=== PATIENT | female | born 1955 | race Caucasian/White ===

== ENCOUNTER 2017-08-13 06:07 | Inpatient (IN) | payer OTHER ==
[2017-07-29 12:43] LABS: ABSOLUTE BASOPHILS 0.1 thou/uL (0.0-0.2); ABSOLUTE EOSINOPHILS 0.1 thou/uL (0.0-0.7); ABSOLUTE LYMPHOCYTES 1.4 thou/uL (0.8-5.3); ABSOLUTE MONOCYTES 0.7 thou/uL (0.0-1.2); ABSOLUTE NEUTROPHILS 5.6 thou/uL (1.6-8.1); BASOPHILS 0.9 %; EOSINOPHILS 1.6 %; HEMATOCRIT 41.3 % (37.0-47.0); HEMOGLOBIN 13.8 gm/dL (12.0-15.0); LYMPHOCYTES 17.7 %; MCH 29.8 pg (26.0-34.0); MCHC 33.3 g/dL (28.0-37.0); MCV 89.5 fL (80.0-100.0); MONOCYTES 8.8 %; MPV 7.2 fl. (7.2-11.1); NUCLEATED RBCS 0 /100WBC; PLATELET COUNT* 383 thou/uL (150-400); RBC 4.62 mil/uL (4.20-5.00); RDW-CV 14.1 % (10.5-14.5); WBC 7.9 thou/uL (4.0-11.0)
[2017-07-29 12:52] LABS: INR 1.1; PROTIME 10.6 Seconds (9.20-11.50)
[2017-07-29 13:09] LABS: CALCIUM 8.8 mg/dL (8.5-10.1); CREATININE 0.9 mg/dL (0.6-1.3); POTASSIUM 4.3 mmol/L (3.5-5.1); TOTAL BILIRUBIN 0.4 mg/dL (<0.1-1.0); TOTAL PROTEIN 6.6 g/dL (6.4-8.2)
[2017-07-29 13:45] LABS: ESR (SEDRATE) 15 mm/hr (0-30)
--- NOTE | 2017-07-29 16:38 | EKG ---
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 07/29/17 1638 1253 [id number] Ricardo Santillan MD, FACC /EPI
[2017-07-30 03:09] LABS: GLYCOHEMOGLOBIN (HGB A1C) 5.3 % (4.8-5.6)
[~2017-08-13] VITALS: Ht 162.6 cm; Wt 110.2 kg
[~2017-08-13 06:07] MED LIST: ULTRAM 50MG TAB50 MG PO
[2017-08-13 06:42] VITALS: BP 149/78
--- NOTE | 2017-08-13 11:31 | NUR ---
ORDER RECEIVED FOR "OT EVALUATION AND TREATMENT". PLAN TO DEFER TO PHYSICAL THERAPY AT THIS TIME.
[2017-08-13 12:12] VITALS: BP 148/70
[2017-08-13 15:12] VITALS: BP 148/70
[2017-08-13 16:11] VITALS: BP 147/72
--- NOTE | 2017-08-13 17:40 | NUR ---
PATIENT ARRIVED ON UNIT FROM PACU AT 1130. COMPLETED ASSESSMENT. PATIENT ALERT AND ORIENTED X'S 4. VITAL SIGNS AND SPO2 STABLE. IV CLEAN, FLUIDS INFUSING. PAIN WELL CONTROLLED WITH PAIN MEDS. ICE PACKS, TEDS, SCD'S IN PLACE. NOBLES IN PLACE. HUNG FIRST ANTIBIOTIC, PATIENT TOLERATED. PATIENT HAD A BOUT OF NAUSEA WHEN SHE TRIED DINNER. GAVE ZOFRAN, NAUSEA SUBSIDED. MEPILEX DRESSING CLEAN, DRY, INTACT. COMPLETED HOURLY ROUNDING. CALL LIGHT WITHIN REACH. WILL CONTINUE TO MONITOR.
[2017-08-13 20:00] VITALS: BP 131/64
[2017-08-14 00:17] VITALS: BP 136/66
[2017-08-14 04:00] VITALS: BP 145/63
[2017-08-14 04:05] LABS: HEMATOCRIT 34.7 % (37.0-47.0); HEMOGLOBIN 11.5 gm/dL (12.0-15.0)
[2017-08-14 04:33] LABS: ALBUMIN 2.9 g/dL (3.4-5.0); CREATININE 0.7 mg/dL (0.6-1.3); POTASSIUM 3.5 mmol/L (3.5-5.1); TOTAL BILIRUBIN 0.4 mg/dL (<0.1-1.0); TOTAL PROTEIN 5.8 g/dL (6.4-8.2)
--- NOTE | 2017-08-14 05:57 | NUR ---
ASSUMED PATIENT CARE AT 1900. PATIENT ALERT AND ORIENTED TIMES FOUR. MINOR COMPLAINTS OF PAIN IN HER RIGHT KNEE. HAS BEEN CONTROLLED WITH ORAL PAIN MEDICATION. 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 HOURLY ROUNDING COMPLETED. NOBLES CATHETER REMOVED THIS AM. FALL RISK PRECAUTIONS IN PLACE.
[2017-08-14 08:00] VITALS: BP 156/80
--- NOTE | 2017-08-14 12:01 | NUR ---
PT.UP IN CHAIR. VERY NAUSEATED. SHE SAID THEY ARE WORKING ON GETTING HER DIFFERENT PAIN MEDS. SHE LIVES WITH HER . HE WILL BE WITH HER AT DISCHARGE. SHE HAS A WALKER AT HOME. SHE HAS BEEN GOING TO [facility] PRIOR TO SURGERY. SHE MAY WANT HOME HEALTH BUT NOT SURE YET. [facility]. MADE REFERRAL TO [facility] IN CASE PT. WANTS HH. CALLED CM IN ELIQUIS PRESCRIPTION WRITTEN TO HER PHARMACY [place] [id number] [facility] IN [phone]. THEY ARE OPEN SAT AND SUN UNTIL 6PM. [facility] [phone]. [facility].PHYSICAL [id number].
[2017-08-14 12:13] VITALS: BP 156/80
--- NOTE | 2017-08-14 17:14 | NUR ---
PATIENT REMAINED ALERT AND ORIENTED X'S 4. VITAL SIGNS AND SPO2 STABLE. PATIENT HATED OXYCODONE AND IT MADE HER FEEL STRANGE AND NAUSEOUS, SHE WOULD LIKE TO STICK WITH TRAMADOL AND TYLENOL. NURSE GAVE ZOFRAN TWICE BUT NAUSEA DID NOT SUBSIDE. DR. GARCIA ORDERED PHENERGREN, NAUSEA SUBSIDED WITHIN MINUTES OF ADMINISTRATION. PATIENT VOIDED 500 MLS OUT SINCE 1000 THIS MORNING. COMPLETED MORNING PT, WAS TOO TIRED TO COMPLETE AFTERNOON PT. WILL CONTINUE PT IN THE MORNING. PATIENT WAS ABLE TO TOLERATE DIET THIS EVENING. COMPLETED HOURLY ROUNDING. CALL LIGHT WITHIN REACH. WILL CONTINUE TO MONITOR.
[2017-08-14 20:30] VITALS: BP 124/61
[2017-08-15] VITALS: BP 149/72
[2017-08-15 04:00] LABS: HEMATOCRIT 35.3 % (37.0-47.0); HEMOGLOBIN 11.7 gm/dL (12.0-15.0)
[2017-08-15 04:36] VITALS: BP 145/71
--- NOTE | 2017-08-15 06:40 | NUR ---
Alert and oriented x 4. Rt knee island mepilex dressing is dry and intact with icebags in place. She is up to the bedside commode with mod assist x 1 and walker. She hasn't had any further nausea or vomiting this night cleaner. She's had pain meds x 3 this shift. Vitals are stable. She has slept well.
[2017-08-15 08:30] VITALS: BP 136/63
[2017-08-15 11:56] VITALS: BP 128/62
[2017-08-15 16:00] VITALS: BP 135/60
--- NOTE | 2017-08-15 18:47 | NUR ---
PATIENT ALERT AND ORIENTED X 4. VITAL SIGNS STABLE ON ROOM AIR. UP WITH ASSIST OF ONE TO THE BEDSIDE COMODE WITH GAIT BELT AND WALKER. IV PATENT AND SALINE LOCKED. PAIN BEING MANAGED WITH PO PAIN MEDICATIONS. ATTENDED THERAPY AND TOLERATED WELL. UP TO CHAIR FOR MEALS. FALL PRECAUTIONS IN PLACE AND BED ALARM ON. SCD'S IN PLACE. DRESSING TO RIGHT KNEE CLEAN, DRY, AND INTACT. HOURLY ROUNDS MAINTAINED THROUGHOUT THE SHIFT. CALL LIGHT WITHIN REACH. NURSING WILL CONTINUE TO MONITOR.
[2017-08-15 23:38] VITALS: BP 144/73
[2017-08-16 03:30] VITALS: BP 150/76
--- NOTE | 2017-08-16 08:11 | NUR ---
PATIENT HAS SLEPT WELL THROUGHOUT THE NIGHT WITHOUT ANY ISSUES. PAIN WELL CONTROLLED. MEDICATIONS GIVEN AND CHARTED. VSS ON RA ALTHOUG PULSE SLIGHTLY TACHY. PATIENT IS UP WITH ASSIST X 1 WITH GAITBELT AND WALKER TO THE [facility]. DRESSING TO RIGHT KNEE IS C/D/I AND SCD'S BILATERALLY. IV IN LEFT FOREARM-SL. PATIENT INSTRUCTED TO USE CALL LIGHT WHEN NEEDING ASSISTANCE. HOURLY ROUNDS MADE. WILL CONTINUE WITH PLAN OF CARE AND NURSING TO MONITOR.
[2017-08-16 08:15] VITALS: BP 147/77
[2017-08-16 15:30] VITALS: BP 151/74
--- NOTE | 2017-08-16 17:21 | NUR ---
PATIENT ALERT AND ORIENTED X 4. VITAL SIGNS STABLE ON ROOM AIR. UP WITH ASSIST OF ONE TO THE BATHROOM WITH GAIT BELT AND WALKER. IV PATENT AND SALINE LOCKED. PAIN BEING MANAGED WITH PO PAIN MEDICATION. DENIES NAUSEA. TOLERATED PT, BUT TIRED AFTERWARDS. UP IN RECLINER MOST OF SHIFT AND FOR MEALS. DRESSING TO RIGHT KNEE DRY AND INTACT. KALEY HOSE AND SCD'S IN PLACE BILATERALLY. FALL PRECAUTIONS IN PLACE AND BED/CHAIR ALARM ON. HOURLY ROUNDS MAINTAINED THROUGHOUT THE SHIFT. CALL LIGHT WITHIN REACH. NURSING WILL CONTINUE TO MONITOR.
[2017-08-17 00:52] VITALS: BP 131/47
[2017-08-17 03:35] VITALS: BP 139/74
--- NOTE | 2017-08-17 06:08 | NUR ---
PATIENT IS SLEPT WELL THROUGHOUT THE NIGHT WITHOUT ANY ISSUES. PAIN WELL CONTROLLED WITH ORAL PAIN MEDICATION AND CHARTED. DRESSING TO RIGHT KNEE IS C/D/I AND SCD'S ON BILATERALLY. IV IN LEFT FOREARM-SL. PATIENT IS UP WITH ASSIST X 1 WITH GAITBELT AND WALKER TO THE BATHROOM AND DOING WELL. PATIENT INSTRUCTED TO USE CALL LIGHT WHEN NEEDING ASSISTANCE. HOURLY ROUNDS MADE. WILL CONTINUE WITH PLAN OF CARE AND NURSING TO MONITOR.
[2017-08-17 08:45] VITALS: BP 143/71
--- NOTE | 2017-08-17 10:51 | S ---
[address] [address] SURGICAL PATH RPT PROCEDURE Name: ALYSHA FORTE Room: [address] IN M.R.#: [id number] Admission: 08/13/17 Date of : 51 Discharge: Report #: [id number] Path Case #: [id number] PATHOLOGY REPORT COLLECTION DATE: 08/13/2017 RECEIVED DATE: 08/13/2017 SUBMITTING PHYS: Dr. Mulugeta Jamison OTHER PHYS: Dr. Tonny Rosenthal SPECIMEN(S) RECEIVED: A.R total knee bone and tissue * * * * * * * * * * * * FINAL DIAGNOSIS: Bone and soft tissue, "right total knee bone and tissue, joint resection": - Degeneration of cartilage consistent with degenerative joint disease. (SHA:mm; 08/17/2017) PATHOLOGIST: Jj Kyle M.D. REPORT ELECTRONICALLY SIGNED BY: Jj Kyle M.D. DATE/TIME: 08/17/2017 10:51 * * * * * * * * * * * * GROSS PATHOLOGY: Received in formalin labeled "Alysha Forte, right total knee bone and tissue," are multiple segments of bone, including tibial plateau, measuring 13.3 x 12.5 x 2.3 cm in aggregate dimensions admixed with soft tissue; meniscus is present. The specimen shows focal eburnation of the articular surfaces. 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 (DAC; 08/14/2017) CLINICAL HISTORY: Right knee degenerative joint disease INITIAL CPT CODE(S): A; 01384, 53400 Professional services [place] [facility] [place] [address] Technical services performed by [facility] at [address] [place] [address] SURGICAL PATH RPT PROCEDURE Name: ALYSHA FORTE Room: [address] IN [facility].#: [id number] Admission: 08/13/17 Date of : 51 Discharge: Report #: [id number] Path Case #: [id number] [address]. [facility] [address] [address] PHONE: [phone] DIRECTOR: Rudolph Hagan M.D. * * * END OF REPORT * * *
[2017-08-17 11:49] VITALS: BP 156/80
[2017-08-17 11:53] VITALS: BP 156/80
[2017-08-17] MEDS ORDERED: ONDANSETRON HCL4 M2 PO (11:55)
[2017-08-17] MEDS ORDERED: ELIQUIS2.5 MG PO (11:56)
[2017-08-17] MEDS ORDERED: OXYCODONE HCL5 MG PO (11:57)
--- NOTE | 2017-08-17 15:09 | NUR ---
PT.TO DISCHARGE HOME TODAY WITH HOME HEALTH. CM WAS ABLE TO LOCATE A AGENCY THAT ACCEPTS HER INSURANCE. SPOKE WITH CHARU AT [facility] [phone] AND FAXED HER ORDERS TO [phone]. THEY WILL SEE PT.TOMORROW. INFORMED PT.AND .
--- NOTE | 2017-08-17 15:37 | NUR ---
PATIENT LEFT UNIT BY WHEELCHAIR AT 1545 WITH NURSING STAFF. IV DC'D. ALL BELONGINGS LEFT WITH PAITENT. EDUCATED PATIENT AND ON NEW MED SCRIPTS AND DISCHARGE INSTRUCTIONS. PATIENT AND VERBALIZED UNDERSTANDING.
[2017-08-17 15:42] VITALS: BP 156/80
--- NOTE | 2017-10-05 16:46 | OP ---
[address] [address] OPERATIVE REPORT Name: REANNADAMON Room: [address] IN M.R.#: [id number] Admission: 08/13/17 Attend Phys: Stella Catalan Discharge: 08/17/17 Date of : 51 Report #: [id number] THIS REPORT FOR: //name// CC: Harish Kennedy DATE OF SERVICE: 08/13/2017 PREOPERATIVE DIAGNOSIS: Advanced degenerative joint disease, right knee. POSTOPERATIVE DIAGNOSIS: Advanced degenerative joint disease, right knee. PROCEDURE: Right total knee arthroplasty. SURGEON: Mulugeta Jamison DO. ANESTHESIA: Spinal anesthetic with an anterior adductor block preop. ESTIMATED BLOOD LOSS: 175 mL. COMPLICATIONS: None. TOURNIQUET: None. IMPLANTS: A Vincent and Nephew 29 mm oval patella, a size 4 right bicruciate stabilized femoral component, a size 4 tibial base plate, a size 11 posterior stabilized tibial bearing and 1 bag of Palacos plain cement. INDICATIONS FOR SURGERY: The patient is a 61-year-old female who is here today for surgical intervention of severe degenerative joint disease of her right knee. She has pain that keeps her from daily activities. She has trouble sleeping at night. She has failed conservative treatment to date including steroid injections, physical therapy, weight loss, behavior modification, etc. She has a NICKEL allergy and therefore was utilizing the higher demand Vincent and Nephew knee with the least amount of nickel available to us today. Risks and complications were discussed in detail. These include but are not limited to neurovascular damage, infection, fracture, need for further surgery, failure of the prosthesis, recall of the prosthesis, allergy developed to prosthesis, deep vein thrombosis, pulmonary emboli, myocardial infarction, rhabdomyolysis, leg length discrepancy, deep vein thrombosis, and . All questions were answered. Signed informed consent has been attached to chart, may refer to and signed informed consent has been attached as well. Her leg is marked preoperatively for timeout technique. SURGICAL PROCEDURE: The patient was taken to the operating [place] [address] OPERATIVE REPORT Name: DAMON FORTE Room: [address] IN [facility].#: [id number] Admission: 08/13/17 Attend Phys: Stella Catalan Discharge: 08/17/17 Date of : 51 Report #: [id number] spinal anesthetic, the right knee was prepped and draped in the usual sterile fashion with tourniquet placed right thigh, which is not utilized during the procedure. After timeout technique, a midline incision was made across the knee through skin and subcutaneous tissue down to the quadriceps and patellar mechanism. The extensor mechanism was then incised with a medial parapatellar incision. The patella was everted. The knee is flexed to 120 degrees. There is eburnated bone throughout the entire knee all 3 compartments. Bone osteophytes were removed with the rongeur. The distal femur was drilled to allow access to the intramedullary too. The intramedullary too and guide was then inserted. The distal femoral cutting block is pinned into place at roughly 9 mm from the distal most aspect of the femur. Intramedullary too was removed. Distal femur was resected at 9 mm. Bony wafers were removed. Attention was then turned to the tibia. The external tibial guide was aligned in all planes, pinned into place at 10 mm below the highest point on the proximal tibia. This tibia was then resected. Bony wafers are removed as well as all meniscal structures. The knee was placed in extension and a 10 mm block was placed into the knee to make sure that bony resection was appropriate for full extension. It was; therefore, all pins were removed. Attention was then turned to the femur. Once again, the anterior femoral measuring block was then applied and the femur was measured anterior to posterior. The appropriate size 5-in-1 cutting block was then placed into the 3-degree external rotation holes and pinned into place. Anterior, posterior condylar cuts, followed by anterior, posterior chamfer cuts were then performed. Cutting block was removed. All bony cuts were removed. The tibia was measured. The appropriate sized tibial tray was aligned in all planes, pinned into place. A trial femur is placed and the spacer was placed into the knee and knee was placed through range of motion to check stability and range of motion. At this time, soft tissue dissection was carried out to completely balance the knee in flexion and extension. With the knee in extension, the patella is reamed with the Katy reaming system to a remaining width of 14-15 mm. It was then measured, drilled and a trial patellar button was applied. The patella tracks anatomically. The knee was extremely stable throughout the entire arc of motion with the components in place. All trial components were removed and final components were obtained, placed on the back table. The tibia was drilled and then impacted with the cruciform punch to accept the final finned tibial tray. The posterior box was made on the femur with the reaming system prior to removal of the femoral component trial. Knee is thoroughly irrigated, injected with the anesthetic solution posteriorly and 1 bag of Palacos cement was mixed. The hemostasis achieved throughout the procedure with use of electrocautery and direct pressure. No tourniquet was utilized during the procedure. When the cement was appropriate, it was placed onto the final components and then placed under pressurization into the interstices of the bone on the tibia, followed by the femur, then the patella. Tibia tray was impacted first, removing all excess cement. The femur was then impacted firmly into place with the protecting wafer in the joint. All excess cement removed. Once again, the patellar button was applied and clamped into place, once again removing all excess cement. A final trial [place] [address] OPERATIVE REPORT Name: DAMON FORTE Room: [address] IN [facility].#: [id number] Admission: 08/13/17 Attend Phys: Stella Catalan Discharge: 08/17/17 Date of : 51 Report #: [id number] The knee was placed through full range of motion prior to cement hardening and the appropriate width was the 11 mm, which gave excellent stability throughout the entire arc of motion. The final component was obtained. Copious irrigation carried out throughout the incision. Cement is still pliable. The final insert is impacted firmly into place. The knee is thoroughly washed once again, checked for any excess cement, was then placed at 90 degrees of flexion with pressurization across the knee until complete cement hardening had occurred. The knee was sprinkled vancomycin powder. It was then closed with a #1 Vicryl in interrupted fashion, sutured to the extensor mechanism, followed by a running #1 Stratafix suture throughout the entire extensor mechanism. Skin was reapproximated with 2-0 Monocryl subcutaneous sutures interrupted, followed by running 3-0 Stratafix subcuticular suture. Dermabond glue was utilized to reinforce the skin, followed by a Mepilex dressing once the glue was dry and a thigh high KALEY hose was applied. The patient tolerated the procedure well and was taken to recovery in stable condition. No complications encountered. Final counts, sponge counts correct x 2. <ELECTRONICALLY SIGNED> By: Mulugeta aJmison DO 10/05/17 1646 0810 [id number] Jamison DO /asaf
== END 2017-08-17 15:43 | disposition home health service (06) | DRG 470 ==
LOC: M.TBA 06:07 → M.PRE 08:53 → M.ORTHSURG 11:29 → M.PRE 12:27 → M.ORTHSURG 08-17 15:43
PROVIDERS: Orthopaedic Surgery; ADMIT Internal Medicine
PROC: 0SRC0J9 Replacement of Right Knee Joint with Synthetic Substitute, Cemented, Open Approach (ICD-10-PCS; principal; 2017-08-13)
DX: M17.11 Unilateral primary osteoarthritis, right knee (principal); I10 Essential (primary) hypertension; G89.18 Other acute postprocedural pain; Z88.8 Allergy status to other drugs, medicaments and biological substances; Z90.49 Acquired absence of other specified parts of digestive tract; Z90.710 Acquired absence of both cervix and uterus; Z87.891 Personal history of nicotine dependence; Z79.899 Other long term (current) drug therapy; Z23 Encounter for immunization